=== PATIENT | male | born 1975 | race Caucasian/White ===

== ENCOUNTER 2022-12-25 01:18 | Day surgery (SDC) | payer OTHER, SELFPAY ==
[2022-12-09 14:52] VITALS: BMI 37.8
[2022-12-25 07:15] VITALS: BP 135/86; PULSE 85; RESP 18; TEMP 36.2; O2SAT 98; BMI 36.9
[2022-12-25 07:41] LABS: Glucose Point of Care 110 mg/dl (65-105)
[2022-12-25] MEDS: LACTATED RINGERS 1,000 ML 150 ML IV CONT (07:42)
--- NOTE | 2022-12-25 08:02 | WPDANESEPPF ---
Anes - Initial Pre Proc Eval Procedure: Operation Date: 12/25/22 08:30 Proposed Procedures p Screening Colonoscopy - Archie Kenyon MD Date/Time: 12/25/22 08:02 Surgeon: Archie Kenyon MD Pre Op Diagnosis: neoplasm screening Patient Data Age: 47 Gender: M Height: 1.91 m Weight: 134.2 kg Last Vital Signs Temp 97.2 F L 12/25/22 07:15 Pulse 85 12/25/22 07:15 Resp 18 12/25/22 07:15 BP 135/86 12/25/22 07:15 Pulse Ox 98 12/25/22 07:15 O2 Del Method Room Air 12/25/22 07:15 Allergies Allergy/AdvReac Type Severity Reaction Status Date / Time Penicillins Allergy Unknown Abdominal Verified 12/25/22 07:23 Pain cefuroxime AdvReac Unknown Wheezing Verified 12/25/22 07:23 Home Medications Medication Instructions Recorded Confirmed Type blood sugar diagnostic (Blood #100 ea 11/11/22 12/25/22 Rx Glucose Test strips) blood-glucose meter #1 ea 11/11/22 12/25/22 Rx lancets #200 ea 11/11/22 12/25/22 Rx rosuvastatin 10 mg tablet (Crestor) 10 mg PO DAILY #90 tabs 11/11/22 12/25/22 Rx metformin 500 mg tablet,extended 1,000 mg PO DAILY 12/09/22 12/25/22 History release 24 hr azithromycin 250 mg tablet See Rx Instructions PO .COMPLEX #6 12/17/22 12/25/22 Rx (Zithromax Z-Ralf) tabs methylprednisolone 4 mg tablets in See Rx Instructions PO PER PKG DIR 12/17/22 12/25/22 Rx a dose pack (Medrol (Ralf)) #21 ea Laboratory Tests 12/25/22 07:38 POC Capillary Glucose 110 mg/dl H mg/dl (65-105) Patient hx anesthesia problems: none Family hx anesthesia problems: none Results Review: All pre-operative results and documents have been reviewed as part of the pre-operative evaluation. 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 Family history of prostate cancer in father History of diverticulitis Social History Social History Smoking status: Never smoker Alcohol intake: current Alcohol use details: 1 drink monthly Substance use type: does not use Living arrangements: with family Spiritual care concerns: No Anes - Eval Final PreProcedure Day of Procedure 12/25/22 08:02 Patient weight: obese Heart: regular rate and rhythm Lungs: clear to auscultation Airway: Mallampati scale class II Neurological: alert and oriented Last oral intake: >/= 8 hours ASA classification: III Emergent: no Anesthetic plan: proceed Anesthesia type and monitoring: general GIVS and standard monitoring Results Review: All pre-operative results and documents have been reviewed as part of the pre-operative evaluation. Informed Consent: The patient's anesthetic plan and its attendant risks and benefits were discussed with the patient/family/POA. Questions were solicited and answers provided to the satisfaction of the patient/family/POA.
--- NOTE | 2022-12-25 08:11 | PM.HPGS ---
History of Present Illness History of Present Illness Consent: Risks, benefits, and alternatives have been discussed and questions answered. Patient agrees to proceed with procedure. Chief complaint: neoplasm screening Narrative: Manav Beckwith is a 47 year old male here for colonoscopy, last one 5 years ago after had diverticulitis and also found to have polyps. Review of Systems Constitutional: Constitutional: Denies headache(s) and Denies weakness Eyes: Eyes: Denies blurry vision ENT: Reports Normal hearing present, Denies headache(s) and Denies neck pain Cardiovascular: Cardiovascular: Denies chest pain and Denies dyspnea Respiratory: Respiratory: Denies dyspnea Gastrointestinal: Gastrointestinal: Reports no additional gastrointestinal complaints Genitourinary: Genitourinary: Denies dysuria Musculoskeletal: Musculoskeletal: Denies neck pain Integumentary/Breasts: Skin/Breast: Denies dry skin Neurologic: Reports Normal hearing present, Denies headache(s) and Denies weakness Psychiatric: Psychiatric: Denies anxiety Endocrine: Endocrine: Denies change in body appearance Hematologic/Lymphatic: Hematologic/Lymphatic: Denies easy bleeding Allergic/Immunologic: Allergic/Immunologic: Denies urticaria [facility] Past Medical History Medical History (Updated 12/25/22 @ 08:12 by Archie Kenyon MD) Basal cell carcinoma of medial [place] of right eye Colon polyp Family history of prostate cancer in father History of diverticulitis Social History Social History Smoking status: Never smoker Alcohol intake: current Alcohol use details: 1 drink monthly Substance use type: does not use Living arrangements: with family Spiritual care concerns: No Meds Home Medications and Allergies Home Medications Medication Instructions Recorded Confirmed Type blood sugar diagnostic (Blood #100 ea 11/11/22 12/25/22 Rx Glucose Test strips) blood-glucose meter #1 ea 11/11/22 12/25/22 Rx lancets #200 ea 11/11/22 12/25/22 Rx rosuvastatin 10 mg tablet (Crestor) 10 mg PO DAILY #90 tabs 11/11/22 12/25/22 Rx metformin 500 mg tablet,extended 1,000 mg PO DAILY 12/09/22 12/25/22 History release 24 hr azithromycin 250 mg tablet See Rx Instructions PO .COMPLEX #6 12/17/22 12/25/22 Rx (Zithromax Z-Ralf) tabs methylprednisolone 4 mg tablets in See Rx Instructions PO PER PKG DIR 12/17/22 12/25/22 Rx a dose pack (Medrol (Ralf)) #21 ea Allergies Allergy/AdvReac Type Severity Reaction Status Date / Time Penicillins Allergy Unknown Abdominal Verified 12/25/22 07:23 Pain cefuroxime AdvReac Unknown Wheezing Verified 12/25/22 07:23 Vital Signs Vital Signs - 24 hr 12/25/22 07:15 Temperature 97.2 F L Pulse Rate 85 Respiratory Rate 18 Blood Pressure 135/86 Pulse Oximetry 98 Oxygen Delivery Room Air Exam Const: General: comfortable and no acute distress HENMT: Face/Nose/Sinus: Normal nares present Eyes: General: appearance normal, both eyes and all related structures Neck: Neck: no JVD Resp: Auscultation: clear to auscultation bilaterally Cardio: Rate: regular rate Rhythm: regular rhythm GI: Inspection: non-distended GI Palp: Yes Soft to palpation Skin: General skin exam: normal color Neuro: General: gait normal Speech: normal speech Extrem: General: normal to inspection Psych: Mental Status: mental status grossly normal Assessment and Plan Assessment and plan (1) Colon polyp: Code(s): K63.5 - Polyp of colon Status: Acute Assessment and Plan: colonoscopy
[2022-12-25 08:27] VITALS: BP 123/63; PULSE 86; RESP 20; O2SAT 95
[2022-12-25 08:37] VITALS: BP 114/63; PULSE 84; RESP 20; O2SAT 95
[2022-12-25 08:47] VITALS: BP 134/72; PULSE 81; RESP 21; O2SAT 95
== END 2022-12-25 08:56 | disposition home or self-care (01) ==
PROVIDERS: PCP Family Medicine; Visit Provider Internal Medicine Gastroenterology
PROC: 0DJD8ZZ Inspection of Lower Intestinal Tract, Via Natural or Artificial Opening Endoscopic (ICD-10-PCS; CPT 45378; principal; 2022-12-25 08:30)
DX: Z12.11 Encounter for screening for malignant neoplasm of colon (principal); K57.30 Diverticulosis of large intestine without perforation or abscess without bleeding; Z79.84 Long term (current) use of oral hypoglycemic drugs; E66.9 Obesity, unspecified; Z68.37 Body mass index [BMI] 37.0-37.9, adult; Z86.010 Personal history of colon polyps
CPT/HCPCS: 45378; 82948; J2704; J7120